=== PATIENT | male | born 1990 | race Caucasian/White ===

== ENCOUNTER → 2020-04-07 10:33 | Outpatient (CLI) | payer OTHER, SELFPAY | PROVIDERS: Referring Provider Nurse Practitioner Family; Visit Provider Nurse Practitioner Family | DX: R05 Cough (principal); R09.81 Nasal congestion; Z20.828 Contact with and (suspected) exposure to other viral communicable diseases | CPT/HCPCS: 87635; C9803; U0003 ==

== ENCOUNTER → 2021-04-08 | Outpatient (CLI) | payer OTHER, SELFPAY | END | disposition home or self-care (01) | LOC: LABSPEC 09:09 | PROVIDERS: Visit Provider Physician Assistant | DX: U07.1 COVID-19 (principal) | CPT/HCPCS: 87635; U0005; U0003 ==

== ENCOUNTER 2023-01-22 17:37 | Emergency (ER) | payer OTHER, SELFPAY ==
[2023-01-22 17:37] VITALS: BP 150/82; PULSE 72; RESP 16; TEMP 36.6; O2SAT 96; BMI 30.4
--- NOTE | 2023-01-22 18:14 | EX.ED.DYSGE1 ---
HPI <PERNELL Huber - Last Filed: 01/22/23 18:20> History of Present Illness Chief Complaint: Other, Pain/Inj Narrative Narrative: Patient is a 32-year-old male with no significant ago history presents the emergency department for concern for thrombosed hemorrhoid. Patient states he did have 1 in the past greater than 5 years ago. Patient states last time, he made an incision was able to get clots out. Patient states that he was feeling something coming in and out such as a hemorrhoid last 2 weeks however this morning when he woke up he would not go back in. He denies any fever chills or denies any blood in stool or vomit PFSH <PERNELL Huber - Last Filed: 01/22/23 18:20> [facility], [facility] Medical History (Updated 01/22/23 @ 18:19 by PERNELL Huber) Arthropathy of left knee COVID-19 determined by clinical diagnostic criteria Encounter for screening for COVID-19 Home Medications CLA PO 05/11/21 [History Last Taken Unknown] ZMA PO 05/11/21 [History Last Taken Unknown] apple cider vinegar 300 mg tablet mg PO 05/11/21 [History Last Taken Unknown] ashwaganda PO 05/11/21 [History Last Taken Unknown] glucosamine 500 [id number]-[id number] no1 416.6 mg-C 20 ip-hjrj-fjfg tablet tab PO 05/11/21 [History Last Taken Unknown] omega-3 fatty acids 1,000 mg capsule 1,000 mg PO BID 05/11/21 [History Last Taken Unknown] hydrocortisone 2.5 % topical cream with perineal applicator (Anusol-HC) 1 applic OR BID #30 grams 01/22/23 [Rx Last Taken Unknown] Allergy/AdvReac Type Severity Reaction Status Date / Time No Known Allergies Allergy Unverified 05/11/21 11:04 Family History (Updated 05/11/21 @ 11:05 by Nupur Tamayo) Mother Multiple sclerosis Surgical History H/O hemorrhoidectomy Social History (Updated 05/11/21 @ 11:10 by Nupur Tamayo) Smoking Status: Former smoker Smokeless tobacco user: chewing tobacco and snuff alcohol intake: current substance use type: does not use ROS <PERNELL Huber - Last Filed: 01/22/23 18:20> ROS ED ROS Narrative Constitutional: Negative for fever, chills, weight loss, weakness Eyes: Negative for vision loss, vision change, double vision ENT: Negative for any sore throat, ear pain, congestion Cardiovascular: Negative for any chest pain, tightness, palpitations Respiratory: Negative for any cough, sputum production, hemoptysis, dyspnea, dyspnea on exertion, orthopnea Gastrointestinal: Negative for any abdominal pain, nausea, vomiting, diarrhea, constipation, blood in stool, blood in vomit. Positive for hemorrhoid : Negative for any urinary frequency, dysuria, retention, blood in urine Muscle skeletal: Negative for any muscle joint pain, stiffness, myalgias, arthralgias, neck pain, back pain Neurological: Negative for any headache, syncope, numbness or tingling, dizziness Skin: Negative for any rashes, lumps, itching, abrasions, lacerations Psychiatric: Negative for any depression, anxiety, stress, suicidal ideation, homicidal ideation Hematologic: Negative for any easy bruising, excessive bruising, easy bleeding Allergies: Negative for any eczema, hives, rash EXAM <PERNELL Huber - Last Filed: 01/22/23 18:20> Physical Exam Narrative Exam Narrative: Vital signs reviewed. HEET: Head normocephalic atraumatic, TMs clear bilaterally. Posterior pharynx is clear, moist mucous membranes. Nares clear bilaterally. Neck: Supple with no lymphadenopathy or tenderness. No signs of meningismus, negative jolt sign. Cardiac: Regular rate and rhythm no murmurs gallops or rubs, equal peripheral pulses bilaterally. Respiratory: Lungs clear to auscultation bilaterally. No chest tenderness. Abdomen: Soft, nontender, nondistended. No abdominal bruit or pulsatile masses. No hepatosplenomegaly Extremities: No peripheral edema, no signs of gross trauma or deformity. Active full range of motion of all extremities. Neuro: Cranial nerves II through XII intact, no focal neurological deficits. Skin: Clean dry and intact with no rash, purpura, petechiae, vesicles or pustules. Backs/flank: No CVA tenderness, no midline spinal tenderness, no deformity. Psych: Normal mood and affect. No SI, HI or acute psychosis. Rectal: Rectal exam showed a thrombosed hemorrhoid towards the right part of the rectum. There is slight discoloration of dark blue to purple. Painful on palpation, no surrounding cellulitis. Const Vital Signs: 01/22/23 17:37 Temperature 97.8 F Temperature Source Temporal Pulse Rate 72 Respiratory Rate 16 Blood Pressure 150/82 H Blood Pressure Mean 104 Pulse Ox 96 Oxygen Delivery Method Room Air <Dr. Abram Alvarado DO - Last Filed: 01/22/23 18:23> Physical Exam Const Vital Signs: 01/22/23 17:37 Temperature 97.8 F Temperature Source Temporal Pulse Rate 72 Respiratory Rate 16 Blood Pressure 150/82 H Blood Pressure Mean 104 Pulse Ox 96 Oxygen Delivery Method Room Air MDM <PERNELL Huber - Last Filed: 01/22/23 18:20> MDM Treatment and Re-Evaluation :: ExaminationPatient appears generally well, patient appears nontoxic, vital signs are stable. Patient presents the emergency department for concern for thrombosed hemorrhoid. Patient's physical examination is consistent with a thrombosed hemorrhoid. There is no surrounding cellulitis. I was able to anesthetize the area, cleansed the area, is able make a 0.5 cm incision, I did get 3-4 clots out, the hemorrhoid did decrease in size substantially. Patient felt better. Patient be placed on Anusol. He is following up with his PCP tomorrow for further evaluation. At this time, patient will do sitz bath's, instructed return for worsening symptoms <Dr. Abram Alvarado DO - Last Filed: 01/22/23 18:23> MDM Treatment and Re-Evaluation :: ExaminationPatient appears generally well, patient appears nontoxic, vital signs are stable. Patient presents the emergency department for concern for thrombosed hemorrhoid. Patient's physical examination is consistent with a thrombosed hemorrhoid. There is no surrounding cellulitis. I was able to anesthetize the area, cleansed the area, is able make a 0.5 cm incision, I did get 3-4 clots out, the hemorrhoid did decrease in size substantially. Patient felt better. Patient be placed on Anusol. He is following up with his PCP tomorrow for further evaluation. At this time, patient will do sitz bath's, instructed return for worsening symptoms. ED attending note: I evaluated the patient in conjunction with the [facility]. I agree with his/her statements and above findings. I have personally performed a face to face assessment of the patient and have reviewed the [facility] Note. I performed a substantive portion of the visit including all aspects of the following. I personally saw the patient performed chart review, physical exam, reviewed labs, imaging (if obtained), and formulated a treatment and management plan. Brief history: 32-year-old male here with hemorrhoids. Exam: Nursing triage notes reviewed, Vital signs reviewed Abdomen: Soft, there is no tenderness, rigidity, rebound or guarding, no obvious peritoneal signs, no palpable pulsatile abdominal masses, no auscultated abdominal bruit Rectal: Thrombosed hemorrhoid noted at approximately 3 to 4 o'clock position MDM/plan: Chief Complaint: Pain from hemorrhoid MDM narrative: Patient was hemodynamically stable, afebrile, nontoxic-appearing. Exam consistent with thrombosed hemorrhoid. Thrombosed hemorrhoid will be excised. Please see [facility] note. Patient be discharged with topical anti-inflammatories, topical analgesics and sitz bath's. Shared decision making: I will have a discussion with the patient and or visitors regarding risk/benefits of further testing or admission. They will be made aware of of the risk/benefits inherent in this decision they will be given the opportunity to voice understanding. Consults: None Procedures <PERNELL Huber - Last Filed: 01/22/23 18:20> Other Procedures Procedure(s): I was able to perform a incision and a thrombosed hemorrhoid. 0.5 cm incision used with 11 blade. Sterile gloves, sterile drapes were used. I did cleanse the area prior towards incision. Patient tolerated well. Patient had relief after procedure. Discharge Plan Triage Chief Complaint: Other, Pain/Inj ED Midlevel Provider: Zaid Mcdermott ED Provider: Abram Alvarado Dx/Rx/DC Orders Clinical Impression: External hemorrhoid, thrombosed Instructions: Diagnosing Hemorrhoids, ED Hemorrhoids Prescriptions: New hydrocortisone [Anusol-HC] 2.5 % cream with perineal applicator 1 applic OR BID Qty: 30 0RF No Action ZMA PO omega-3 fatty acids 1,000 mg capsule 1,000 mg PO BID ashwaganda PO [id number]-[id number]-[id number]-august-bosw 500-416.6-20 mg tablet PO apple cider vinegar 300 mg tablet PO CLA PO Primary Care Provider: Katherine Acevedo Referrals: Katherine Acevedo MD [Primary Care Provider] - Activity Restrictions/Additional Instructions: Please follow-up with your PCP, use the Anusol as needed. Perform sitz bath's. Please return for any worsening symptoms Disposition Disposition: Home, Self Care
[2023-01-22] MEDS: Lidocaine 1% /Epi 1:100 (20ml) 20 ML Vial 3 ML INFILT (18:18)
--- NOTE | 2023-01-22 18:54 | NURSING ---
felix brunner in to inject hemmorhoid. per report two small clots evacuated with proceedure. dsd applied and sergey well
== END 2023-01-22 18:54 | disposition home or self-care (01) ==
PROVIDERS: Emergency Provider Emergency Medicine; PCP Internal Medicine; Visit Provider Emergency Medicine
DX: K64.5 Perianal venous thrombosis (principal); Z87.891 Personal history of nicotine dependence
CPT/HCPCS: 46083; 99283

== ENCOUNTER → 2023-01-23 | Outpatient (CLI) | payer OTHER, SELFPAY ==
[2023-01-23 16:04] LABS: Basophil# 0.04 X10^3/uL; Basophil% 0.6 % (0-1); Eosinophil# 0.08 X10^3/uL; Eosinophils% 1.3 % (0-5); Hemoglobin 14.5 g/dL (13.0-16.5); Lymphocyte % 26.9 % (19-41); Mean Corp Hgb Conc 33.7 g/dL (32-36); Mean Corpuscular Hgb 28.4 pg (27.0-32.0); Mean Corpuscular Volume 84.1 fL (80-94); Mean Platelet Vol. 11.1 fl (6.2-12.0); Monocyte# 0.47 X10^3/uL; Monocyte% 7.4 % (0-10); NRBC Flagged by Analyzer 0 % (0-5); Neutrophil # 4.01 X10^3/uL (2.7-7.7); Neutrophil % 63.6 % (47-70); Platelet Count 242 K/mm3 (150-450); RBC Distribution Width CV 12.3 % (11.6-14.6); RBC Distribution Width SD 37.2 fl (35.1-43.9); Red Blood Count 5.11 M/mm3 (4.6-6.2); White Blood Count 6.3 K/mm3 (4.4-11.0)
[2023-01-23 16:26] LABS: Vitamin D,25 Hydroxy 46.6 ng/mL
[2023-01-23 16:27] LABS: ALB/GLOB Ratio 1.2 RATIO (0.9-2.4); AST(SGOT) 12 U/L (15-37); Alanine Aminotransfer ALT/SGPT 28 U/L (16-61); Albumin, Serum 3.9 g/dL (3.2-5.0); Alkaline Phosphatase 75 U/L (45-117); Anion Gap 4 (5-15); BUN 14 mg/dL (7-18); BUN/Creat Ratio 15.7 RATIO (10-20); Calcium,Total 8.8 mg/dL (8.5-10.1); Chloride 106 mmol/L (98-107); Cholesterol 196 mg/dL (200); Creatinine, Serum 0.89 mg/dL (0.70-1.30); EST Glomerular Filtration Rate 106 mL/min (>60); Est Glom Filt Rate - Afr Amer 128 mL/min (>60); Free T3 2.7 pg/mL (2.18-3.98); Globulin 3.2 g/dL (2.2-4.2); Glucose 84 mg/dL (74-106); High Density Lipoprotein 65 mg/dL; Protein, Total 7.1 g/dL (6.4-8.2); Sodium Level 138 mmol/L (136-145); T4 Free Direct 0.87 ng/dL (0.76-1.46); Thyroid Stim Hormone (TSH) 2.18 uIU/mL (0.358-3.74); Triglycerides 77 mg/dL; Very Low Density Lipoprotein 15 mg/dL (5-40)
== END | disposition home or self-care (01) ==
LOC: LAB 15:04
PROVIDERS: PCP Internal Medicine; Referring Provider Internal Medicine; Visit Provider Internal Medicine
DX: Z00.00 Encounter for general adult medical examination without abnormal findings (principal); Z13.220 Encounter for screening for lipoid disorders; E55.9 Vitamin D deficiency, unspecified
CPT/HCPCS: 36415; 80053; 80061; 82306; 84439; 84443; 84481; 85025

== ENCOUNTER → 2025-04-21 | Outpatient (CLI) | payer OTHER, SELFPAY | END | disposition home or self-care (01) | LOC: LABSPEC 16:47 | PROVIDERS: PCP Internal Medicine | DX: J02.9 Acute pharyngitis, unspecified (principal) | CPT/HCPCS: 87070; 87077 ==